=== PATIENT | male | born 1975 | race Caucasian/White ===

== ENCOUNTER 2018-06-15 00:56 | Inpatient (IN) | payer OTHER ==
[~2018-06-15] VITALS: Ht 185.4 cm; Wt 167.8 kg
[~2018-06-15 00:56] MED LIST: AZITHROMYCIN 2250 MG PO; NOHOMEMEDICATIONS; ULTRAM 50MG TAB50 MG PO
[2018-06-15 01:09] VITALS: BP 182/94
[2018-06-15] MEDS ORDERED: FLEXERIL PO (01:14)
[2018-06-15] MEDS ORDERED: NEURONTIN 300300 M1 PO (01:14)
[2018-06-15] MEDS ORDERED: KETOROLAC TROME10 MG PO (01:15)
[2018-06-15 03:29] LABS: ABSOLUTE BASOPHILS 0.1 thou/uL (0.0-0.2); ABSOLUTE EOSINOPHILS 0.1 thou/uL (0.0-0.7); ABSOLUTE LYMPHOCYTES 1.4 thou/uL (0.8-5.3); ABSOLUTE MONOCYTES 0.8 thou/uL (0.0-1.2); ABSOLUTE NEUTROPHILS 8.4 thou/uL (1.6-8.1); BASOPHILS 0.7 %; EOSINOPHILS 0.5 %; HEMATOCRIT 42.4 % (42.0-52.0); HEMOGLOBIN 14.9 gm/dL (14.0-18.0); LYMPHOCYTES 12.7 %; MCH 32.2 pg (26.0-34.0); MCHC 35.2 g/dL (28.0-37.0); MCV 91.7 fL (80.0-100.0); MONOCYTES 7.4 %; MPV 7.5 fl. (7.2-11.1); NUCLEATED RBCS 0 /100WBC; PLATELET COUNT* 269 thou/uL (150-400); POLYS 78.7 %; RBC 4.62 mil/uL (4.50-6.00); RDW-CV 13.5 % (10.5-14.5); WBC 10.7 thou/uL (4.0-11.0)
[2018-06-15 03:43] LABS: ALBUMIN 3.8 g/dL (3.4-5.0); CALCIUM 8.6 mg/dL (8.5-10.1); CREATININE 1.2 mg/dL (0.6-1.3); POTASSIUM 3.8 mmol/L (3.5-5.1); TOTAL BILIRUBIN 0.7 mg/dL (<0.1-1.0); TOTAL PROTEIN 7.3 g/dL (6.4-8.2)
[2018-06-15 04:14] VITALS: BP 182/92
[2018-06-15 04:24] VITALS: BP 153/93
[2018-06-15 08:09] LABS: AMP/METHAMP Negative (Negative); BARBITURATES Negative (Negative); BENZODIAZEPINES Negative (Negative); COCAINE Negative (Negative); METHADONE Negative (Negative); OPIATES POSITIVE (Negative); PCP Negative (Negative); THC Negative (Negative)
[2018-06-15 09:54] VITALS: BP 143/93
[2018-06-15 16:00] VITALS: BP 148/71; BP 153/92
[2018-06-15 20:18] VITALS: BP 154/95
[2018-06-15 21:09] LABS: GLYCOHEMOGLOBIN (HGB A1C) 5.9 % (4.8-5.6)
[2018-06-16 04:46] LABS: CREATININE 1.4 mg/dL (0.6-1.3); MAGNESIUM 1.7 mg/dL (1.8-2.4); POTASSIUM 4.1 mmol/L (3.5-5.1)
[2018-06-16 09:59] VITALS: BP 145/76
[2018-06-16 16:00] VITALS: BP 151/94
[2018-06-16 17:54] LABS: URINE BILIRUBIN NEGATIVE (Negative); URINE BLOOD 3+ (Negative); URINE CLARITY CLEAR; URINE COLOR YELLOW; URINE GLUCOSE-RANDOM NEGATIVE (Negative); URINE KETONES NEGATIVE (Negative); URINE LEUKOCYTES-REFLEX NEGATIVE (Negative); URINE NITRITE-REFLEX NEGATIVE (Negative); URINE PROTEIN NEGATIVE (Negative); URINE UROBILINOGEN 0.2 E.U./dl (0.2-1.0)
[2018-06-16 18:02] LABS: HYALINE CASTS 0-3 Few /LPF (None Seen); MUCUS None Seen strn/LPF (None Seen); SQUAMOUS 4-10 Moderate /LPF (0-3); URINE WBC-REFLEX 0-5 Rare /HPF (0-5)
[2018-06-16 18:03] LABS: BACTERIA-REFLEX 1-9 Few /HPF (None Seen); CRYSTALS None Seen /LPF (None Seen)
[2018-06-16 20:00] VITALS: BP 134/80
[2018-06-17 08:21] VITALS: BP 171/94
[2018-06-17 08:30] LABS: CALCIUM 8.2 mg/dL (8.5-10.1); CREATININE 0.8 mg/dL (0.6-1.3); POTASSIUM 3.8 mmol/L (3.5-5.1)
[2018-06-17] MEDS ORDERED: NORCO 7.5-3251 EACH PO (09:32)
[2018-06-17 09:36] VITALS: BP 134/80
[2018-06-17 09:46] VITALS: BP 134/80
[2018-06-17 14:04] VITALS: BP 134/80
== END 2018-06-17 14:25 | disposition home or self-care (01) | DRG 693 ==
LOC: M.ERS 00:56 → M.TBA-ER 03:11 → M.ORTHSURG 03:11
PROVIDERS: Emergency Medicine; ADMIT Internal Medicine
DX: N20.1 Calculus of ureter (principal); N17.0 Acute kidney failure with tubular necrosis; R73.9 Hyperglycemia, unspecified; R73.03 Prediabetes; Z88.1 Allergy status to other antibiotic agents